=== PATIENT | female | born 1980 | race African-American/Black ===

== ENCOUNTER 2018-02-11 05:40 | Emergency (ER) | payer MEDICAID ==
[~2018-02-11] VITALS: Ht 167.6 cm; Wt 57.0 kg
[~2018-02-11 05:40] MED LIST: HYDR-1348; SUCR1TAB
[2018-02-11] MEDS ORDERED: KETOROLAC 60MG/2ML VIAL IM STA (06:31)
[2018-02-11] MEDS ORDERED: ONDANSETRON 4MG ODT PO STA (06:31)
[2018-02-11 07:12] LABS: CLARITY URINE CLEAR (CLEAR); COLOR URINE DARK YELLOW (YELLOW); KETONES URINE NEGATIVE (NEGATIVE); LEUKOCYTE ESTERASE URINE NEGATIVE (NEGATIVE); NITRITE URINE NEGATIVE (NEGATIVE); OCCULT BLOOD URINE NEGATIVE (NEGATIVE); PH URINE 5.5 (4.5-8.0); PROTEIN URINE NEGATIVE (NEGATIVE); SPECIFIC GRAVITY URINE 1.022 (1.005-1.030)
[2018-02-11 07:14] LABS: BASOPHILS % 0.7 % (0.0-2.0); HEMATOCRIT. 33.1 % (36.0-48.0); HEMOGLOBIN. 11.2 g/dL (12.0-16.0); LYMPHOCYTES % 24.4 % (20.0-50.0); MEAN CORPUSCULAR HEMOGLOBIN 31.3 pg (28.0-32.0); MEAN CORPUSCULAR VOLUME 92.4 fL (81.0-99.0); MEAN PLATELET VOLUME 7.2 fl (7.4-10.4); NEUTROPHILS % 69.9 % (40.0-76.0); PLATELET 249 x1000/uL (130-400); RED BLOOD CELL COUNT 3.58 mill/uL (4.2-5.4); RED CELL DISTRIBUTION WIDTH 13.3 % (11.6-14.6)
[2018-02-11 07:19] LABS: CHLORIDE 109 mEq/L (98-107)
[2018-02-11] MEDS ORDERED: MORPHINE SULFATE 10 MG/ML CPJ IM ONE (08:45)
[2018-02-11] MEDS ORDERED: ONDANSETRON 4MG ODT PO ONE (08:45)
[2018-02-11 11:26] VITALS: BP 110/69
== END 2018-02-11 11:29 | disposition home or self-care (01) ==
LOC: ER 05:40
DX: R10.30 Lower abdominal pain, unspecified (principal); R11.0 Nausea; F41.9 Anxiety disorder, unspecified
CPT/HCPCS: 36415; 74176; 76856; 80053; 81003; 81025; 83690; 85025; 96372; 99285; J1885; J2270; Q0162; Z7610